=== PATIENT | male | born 1975 | race Caucasian/White ===

== ENCOUNTER 2019-03-10 07:09 | Emergency (ER) | payer OTHER ==
[2019-03-10 07:22] VITALS: BP 148/98
--- NOTE | 2019-03-10 07:49 | UC ---
Complaint Male HPI - HPI Summary HPI Summary: Pt presnts with 3 days progressive urinary urgency, mild urinary discomfort and feeling like dribbling. no hematuria. no back pain. No lesions. no pain in testicles/scrotum. Cat back pain. no fever, cills. No analgesia taken. Pt in monogamous relationship. Partner female, no sx no h/o STD no rectal pain. no trauma. Pt doea have a h/o prostatitis medications reviewed - History of Current Complaint Chief Complaint: UCGU Stated Complaint: URINARY COMPLAINT Time Seen by Provider: 03/10/19 07:48 Hx Obtained From: Patient Pain Intensity: 2 - Allergies/Home Medications Allergies/Adverse Reactions: Allergies Allergy/AdvReac Type Severity Reaction Status Date / Time No Known Allergies Allergy Verified 05/29/16 21:22 Home Medications: Home Medications Atorvastatin* [Lipitor*] 20 mg PO 1700 03/10/19 [History Confirmed 03/10/19] PMH/Surg Hx/FS Hx/Imm Hx Previously Healthy: Yes GI/ History: Other - prostatitis - Surgical History Surgical History: Yes Surgery Procedure, Year, and Place: vasectomy. piloneal cyst on tailbone - Family History Known Family History: Positive: Non-Contributory - Social History Occupation: Employed Full-time Lives: With Family Alcohol Use: Rare Alcohol Amount: lightly Substance Use Type: None Smoking Status (MU): Former Smoker Amount Used/How Often: 5 cigarettes per week Have You Smoked in the Last Year: Yes - Immunization History Most Recent Influenza Vaccination: none Most Recent Tetanus Shot: 5 years ago Most Recent Pneumonia Vaccination: none Review of Systems All Other Systems Reviewed And Are Negative: Yes Constitutional: Positive: Negative Gastrointestinal: Negative: Nausea Genitourinary: Positive: Frequency, Urgency. Negative: Hematuria Physical Exam - Summary Physical Exam Summary: Vital Signs Reviewed: Yes A+Ox3, no distress Eyes: Conjunctiva Clear, ANNA. EOM intact and full ENT: Hearing grossly normal TM x 2 clear, mmoist, uvula midline, no exudate, no erythema Neck: Positive: Supple Respiratory: Positive: No respiratory distress, No accessory muscle use + CTA throughout no w/r Cardiovascular: RRR nl s1, s2 no m/r CBT <2 sec abd soft + BS NT/ND soft No CVA SHARI [place] chaparone testes down, no lesions no discomfort with palp of testicles, epidydmis, no hernia no odor, no discharge Musculoskeletal Exam: POTTER x 4 without difficulty Strength Intact, ROM Intact Neurological: Positive: Alert, + sensation throughout Psychological: Positive: Normal Response To Family Skin: Positive: no rash, no ecchymosis Triage Information Reviewed: Yes Vital Signs: Initial Vital Signs Temp 97.7 F 03/10/19 07:14 Pulse 67 03/10/19 07:14 Resp 18 03/10/19 07:14 BP 148/98 03/10/19 07:14 Pulse Ox 98 03/10/19 07:14 Diagnostics - Radiology No standard instances Radiology Interpretation Completed By: Radiologist Re-Evaluation - Re-Evaluation First Eval Comment: reviewed urine, ultrasound. Rx doxy and pyridium. hyudrate. strict return precautions Complaint Male Course/Dx - Course Course Of Treatment: Pt with 3 day urinary frequency, urgence and possile dibbiling no h/o similar pt does have h/o prostatitis mild increased BP - related to condition No focal exam d/w pt differential - uti - dip not concerning UTI - pt monogamous - will check GC/CH/Trich prostatiitis= rectal deferred will check ultrasound for postvoid residual and for rhydro if neg - will start Doxy -covers urine, prostatitis, chlamydia pt comfortale and in agreement with plan - Differential Dx/Diagnosis Provider Diagnosis: Urinary frequency Discharge - Sign-Out/Discharge Documenting (check all that apply): Patient Departure All imaging exams completed and their final reports reviewed: Yes - Discharge Plan Condition: Critical Disposition: HOME Prescriptions: DOXYcycline CAP(*) [DOXYcycline 100MG CAP(*)] 100 mg PO BID #20 cap Phenazopyridine TAB* [Pyridium 100 mg TAB*] 100 mg PO TID PRN #9 tab PRN Reason: burning with urination Patient Education Materials: Dysuria (ED) Referrals: Jonnie Goncalves DO [Primary Care Provider] - Additional Instructions: As discussed, there are several tests that are pending from your visit today. The provider that evaluated you today did not find any other signs or concerning symptoms to suggest you have a sexual transmitted disease but this can be a cause for burning with urination. You have been tested for sexually transmitted infections which include gonorrhea,, Chlamydia, and Trichomonas. Your urine did not show an obvious bladder infection so it has been sent for additional testing as well. All of these results take several days to come back. You will receive a call from a care hospice team lead when these results are back. It is recommended that you stay well-hydrated. -Drink plenty of nonalcoholic, non-caffeinated beverages. - Okay to alternate Motrin and Tylenol as needed for discomfort. - Additionally you have been given a prescription for an antibiotic as well as Pyridium. Take the antibiotic as prescribed until gone. Pyridium is a medication to help with discomfort related to urination. This medication will make your urine bright orange. This is normal and resolves 12 hours after taking the medication. Okay to take as directed for discomfort - If you develop fever, vomiting, uncontrolled pain, inability urinate or back pain or anything else is recommended you go to emergency department for further evaluation - Billing Disposition and Condition Condition: CRITICAL Disposition: Home
[2019-03-11 12:32] LABS: Neisseria gonorrhoeae (GC) RNA Negative (Negative)
[2019-03-11 21:13] LABS: Trichomonas vaginalis SOURCE: Urine (Male Patient)
--- NOTE | 2019-03-14 16:07 | UC ---
- Progress Note Progress Note: Called pt - reviewed neg GC/CH/trich states feeling improved no discomfort continues with mild urgency No dibbling recommed complete abx as prescribed f/u with urology - pt has previously seen Dr. catalan Course/Dx - Diagnoses Provider Diagnoses: Urinary frequency Discharge - Sign-Out/Discharge Documenting (check all that apply): Post-Discharge Follow Up All imaging exams completed and their final reports reviewed: Yes - Discharge Plan Condition: Critical Disposition: HOME Prescriptions: DOXYcycline CAP(*) [DOXYcycline 100MG CAP(*)] 100 mg PO BID #20 cap Phenazopyridine TAB* [Pyridium 100 mg TAB*] 100 mg PO TID PRN #9 tab PRN Reason: burning with urination Patient Education Materials: Dysuria (ED) Referrals: Jonnie Goncalves DO [Primary Care Provider] - Additional Instructions: As discussed, there are several tests that are pending from your visit today. The provider that evaluated you today did not find any other signs or concerning symptoms to suggest you have a sexual transmitted disease but this can be a cause for burning with urination. You have been tested for sexually transmitted infections which include gonorrhea,, Chlamydia, and Trichomonas. Your urine did not show an obvious bladder infection so it has been sent for additional testing as well. All of these results take several days to come back. You will receive a call from a care guest service team leader when these results are back. It is recommended that you stay well-hydrated. -Drink plenty of nonalcoholic, non-caffeinated beverages. - Okay to alternate Motrin and Tylenol as needed for discomfort. - Additionally you have been given a prescription for an antibiotic as well as Pyridium. Take the antibiotic as prescribed until gone. Pyridium is a medication to help with discomfort related to urination. This medication will make your urine bright orange. This is normal and resolves 12 hours after taking the medication. Okay to take as directed for discomfort - If you develop fever, vomiting, uncontrolled pain, inability urinate or back pain or anything else is recommended you go to emergency department for further evaluation - Billing Disposition and Condition Condition: CRITICAL Disposition: Home
== END 2019-03-10 10:39 | disposition home or self-care (01) ==
LOC: UCEAST 07:09
DX: R35.0 Frequency of micturition (principal); R39.15 Urgency of urination; Z87.891 Personal history of nicotine dependence
CPT/HCPCS: 76770; 81003; 87086; 87491; 87591; 87661; 99212; G0463